=== PATIENT | female | born 1955 | race Hispanic/Latino ===

== ENCOUNTER → 2019-12-25 | Outpatient (CLI) | payer MEDICARE ==
[~2019-12-25] MED LIST: ALEN70TA69 PO; ALEVE PO; ATOR10TA69 PO; CYCL30DR OP; GADODIAMIDE 10 MMOL/20 ML VIAL IV ONE; HYDR25TA PO; LISI-613 PO; MOME17N NS; OXYC-38 PO; PREMC VG; TEMA30CA PO
== END | disposition home or self-care (01) ==
LOC: RAH 08:41
PROVIDERS: ATTEND Family Medicine
DX: M51.27 Other intervertebral disc displacement, lumbosacral region (principal)
CPT/HCPCS: 72158; A9579

== ENCOUNTER → 2020-04-16 | Outpatient (CLI) | payer MEDICARE ==
[~2020-04-16] MED LIST changes: -ALEN70TA69 PO; +ALEN70TA80 PO; -GADODIAMIDE 10 MMOL/20 ML VIAL IV ONE; -LISI-613 PO; +LISI20TA24 PO
== END | disposition home or self-care (01) ==
LOC: RAH 16:34
PROVIDERS: ATTEND Otolaryngology Plastic Surgery within the Head & Neck
DX: J01.00 Acute maxillary sinusitis, unspecified (principal); J32.8 Other chronic sinusitis
CPT/HCPCS: 70486

== ENCOUNTER → 2020-05-05 | Outpatient (CLI) | payer MEDICARE | END | disposition home or self-care (01) | LOC: RAH 07:07 | PROVIDERS: ATTEND Physical Medicine & Rehabilitation | DX: M48.02 Spinal stenosis, cervical region (principal) | CPT/HCPCS: 72141 ==

== ENCOUNTER → 2020-06-04 | Outpatient (CLI) | payer MEDICARE | END | disposition home or self-care (01) | LOC: RAH 10:22 | PROVIDERS: ATTEND Physical Medicine & Rehabilitation | DX: R27.8 Other lack of coordination (principal); R26.89 Other abnormalities of gait and mobility | CPT/HCPCS: 70551 ==

== ENCOUNTER → 2020-09-02 | Outpatient (CLI) | payer MEDICARE | END | disposition home or self-care (01) | LOC: RAH 10:59 | PROVIDERS: ATTEND Otolaryngology Plastic Surgery within the Head & Neck | DX: K21.9 Gastro-esophageal reflux disease without esophagitis (principal); R13.10 Dysphagia, unspecified | CPT/HCPCS: 74230; 92611 ==

== ENCOUNTER → 2021-06-11 | Outpatient (CLI) | payer MEDICARE ==
[~2021-06-11] MED LIST changes: -MOME17N NS; +MOME17SP4 NS
== END ==
LOC: RAH 09:13
PROVIDERS: ATTEND Physical Medicine & Rehabilitation
DX: M47.816 Spondylosis without myelopathy or radiculopathy, lumbar region (principal); M54.50 Low back pain, unspecified
CPT/HCPCS: 72114

== ENCOUNTER → 2021-09-22 | Outpatient (CLI) | payer MEDICARE | END | disposition home or self-care (01) | LOC: RAH 12:41 | PROVIDERS: ATTEND Physical Medicine & Rehabilitation | DX: M47.26 Other spondylosis with radiculopathy, lumbar region (principal); M54.51 Vertebrogenic low back pain; M99.05 Segmental and somatic dysfunction of pelvic region; M46.1 Sacroiliitis, not elsewhere classified | CPT/HCPCS: 72148 ==

== ENCOUNTER 2023-01-18 06:31 | Day surgery (SDC) | payer MEDICARE, OTHER ==
[2023-01-16 13:57] LABS: BASOPHILS # (AUTO) 0.04 K/uL (0.00-0.20); BASOPHILS % (AUTO) 0.6 % (0.0-5.0); EOSINOPHILS # (AUTO) 0.14 K/uL (0.00-0.70); EOSINOPHILS % (AUTO) 2.2 % (0.0-8.0); HEMATOCRIT 37.7 % (36-48); IMMATURE GRANULOCYTE ABSOLUTE 0.01 K/uL (0-1); LYMPHOCYTES # (AUTO) 2.6 K/uL (1.0-4.8); LYMPHOCYTES % (AUTO) 40.8 % (21.0-51.0); MEAN CORPUSCULAR HEMOGLOBIN 29.7 pg (27.0-33.0); MEAN CORPUSCULAR HGB CONC 32.1 g/dL (32.0-36.0); MEAN CORPUSCULAR VOLUME 92.6 fL (79-99); MONOCYTES # (AUTO) 0.5 K/uL (0.1-1.0); MONOCYTES % (AUTO) 7.5 % (3.0-13.0); NEUTROPHILS # (AUTO) 3.1 K/uL (1.8-7.7); NEUTROPHILS % (AUTO) 48.7 % (40.0-77.0); PLATELET COUNT (AUTO) 275 K/uL (130-400); RED BLOOD CELL COUNT(AUTO) 4.07 MIL/uL (4.00-5.50); RED CELL DISTRIBUTION WIDTH 13.4 % (11.0-15.5); WHITE BLOOD COUNT (AUTO) 6.3 K/uL (4.8-10.8)
[2023-01-16 14:10] LABS: INR < 0.93 (0.85-1.15); PROTHROMBIN TIME 10.7 SEC (9.6-11.6)
[2023-01-16 14:11] LABS: PARTIAL THROMBOPLASTIN TIME 27.7 SEC (26.3-35.5)
[2023-01-16 14:17] VITALS: BP 149/80; PULSE 70; RESP 18
[2023-01-16 14:29] LABS: BILIRUBIN,TOTAL 0.7 mg/dL (0.2-1.0); CREATININE 1.3 mg/dL (0.5-1.5); POTASSIUM 4.6 mmol/L (3.5-5.1)
[2023-01-18] VITALS (17 sets, daily range): BP systolic 110–134; BP diastolic 64–70; PULSE 71–84; RESP 14–18
[~2023-01-18] VITALS: Ht 162.6 cm; Wt 73.8 kg
[~2023-01-18 06:31] MED LIST changes: -ALEVE PO; +AMLO-258 PO; +BISA-151 PO; +CARB-38 PO; +CETI10TA57 PO; +DOCU240C25 PO; +FLUT15.845 IH; +FURO20TA4 PO; -LISI20TA24 PO; +LISI40TA9 PO; -MOME17SP4 NS; +NALO25TA4 PO; -OXYC-38 PO; +PERCT10 PO; -PREMC VG; +SULF1TAB42 PO; +TIZA2CAP9 PO; +albuterol IH
[2023-01-18] MEDS ORDERED: CEFAZOLIN SODIUM 2 GM VIAL ONE (07:08)
[2023-01-18] MEDS ORDERED: 0.9%NACL 1000ML 1,000 ML IV ONE (07:08)
[2023-01-18 07:59] LABS: SARS-CoV-2, RNA, NAAT NEGATIVE SARS CoV-2 (NEGATIVE)
[2023-01-18] MEDS ORDERED: BUPIVACAINE/PF 0.5% 30ML VIAL ONE (08:16)
[2023-01-18] MEDS ORDERED: CEFAZOLIN SODIUM 1 GM VIAL ONE ×3 (08:27→09:42)
[2023-01-18] MEDS ORDERED: GENTAMICIN SULFATE 80 MG/2 ML VIAL ONE ×3 (08:27→09:42)
[2023-01-18] MEDS ORDERED: DEXAMETHASONE SOD PHOSPHATE 10MG/ML 1ML VIAL ONE (09:00)
[2023-01-18] MEDS ORDERED: LIDOCAINE PF 100MG/5ML (2%) SYRINGE 5ML ONE (09:00)
[2023-01-18] MEDS ORDERED: SUCCINYLCHOLINE 200MG/10ML SYR ONE (09:00)
[2023-01-18] MEDS ORDERED: MIDAZOLAM HCL 1 MG/ML 2ML VIAL ONE (09:01)
[2023-01-18] MEDS ORDERED: GLYCOPYRROLATE 1 MG/5 ML SYRINGE ONE (09:01)
[2023-01-18] MEDS ORDERED: NEOSTIGMINE 5MG/5ML SYR IV ONE (09:02)
[2023-01-18] MEDS ORDERED: ROCURONIUM 10MG/1ML SYR 10 MG/ML ML ONE (09:02)
[2023-01-18] MEDS ORDERED: ONDANSETRON 4MG INJ ONE (09:02)
[2023-01-18] MEDS ORDERED: PROPOFOL 10 MG/ML 20ML VIAL IV ONE (09:02)
[2023-01-18] MEDS ORDERED: FENTANYL CITRATE PF 50 MCG/1 ML 2ML VIAL ONE (09:02)
[2023-01-18] MEDS ORDERED: POLYMYXIN B SULFATE IRRIG SCH (09:30)
[2023-01-18] MEDS ORDERED: MEPERIDINE-PF 25 MG/ML SYG ONE (11:06)
[2023-01-18] MEDS ORDERED: BACITRACIN 1 EACH PACKET TP ONE (12:14)
== END 2023-01-18 12:30 | disposition home or self-care (01) ==
LOC: DAH 06:31
PROVIDERS: ATTEND Plastic Surgery
DX: N64.89 Other specified disorders of breast (principal); S21.001A Unspecified open wound of right breast, initial encounter; I10 Essential (primary) hypertension; K59.09 Other constipation; L92.8 Other granulomatous disorders of the skin and subcutaneous tissue; Z90.13 Acquired absence of bilateral breasts and nipples; Z85.3 Personal history of malignant neoplasm of breast; X58.XXXA Exposure to other specified factors, initial encounter; Y93.89 Activity, other specified; Y92.89 Other specified places as the place of occurrence of the external cause; Z82.3 Family history of stroke; Z80.3 Family history of malignant neoplasm of breast; Z83.3 Family history of diabetes mellitus; Z82.49 Family history of ischemic heart disease and other diseases of the circulatory system; Z79.899 Other long term (current) drug therapy; Z90.710 Acquired absence of both cervix and uterus; Z98.890 Other specified postprocedural states
CPT/HCPCS: 80053; 85025; 85610; 85730; 36415; 93005; 11971; 11301; 11302; 11981; 87070; 87076; 87077; 87186; 87205; 87116; 87206; 88304; 87635; A6260; A4663; J7030 ×2; A4606; A4649 ×5; J3010; J0690 ×4; J0330; J3490 ×2; J1100; J2710; J2001; J1580 ×3; J2250; J2704; J2405; J2175; A6219; C1713; A4215; A4223; A4222; A4221; A6450; A4600; J0665

== ENCOUNTER → 2024-03-27 | Outpatient (CLI) | payer OTHER ==
[2024-03-27 12:14] LABS: ALBUMIN 3.5 g/dL (3.5-5.0); ASPARTATE AMINOTRANSFERASE 19 U/L (10-37); BILIRUBIN,TOTAL 0.8 mg/dL (0.2-1.0); CARBON DIOXIDE 31 mmol/L (21-32); CHLORIDE 105 mmol/L (101-111); CHOLESTEROL 168 mg/dL (<200); CREATININE 0.9 mg/dL (0.5-1.0); GLOMERULAR FILTR. RATE CALC 69 mL/min (>90); GLUCOSE,RANDOM 104 mg/dL (70-105); HDL CHOLESTEROL 65 mg/dL (35-85); LDL DIRECT 93 mg/dL (0-99); POTASSIUM 4.3 mmol/L (3.5-5.1); SODIUM SERUM 140 mmol/L (136-145); TOTAL PROTEIN, SERUM 6.9 g/dL (6.0-8.3); TRIGLYCERIDES 77 mg/dL (30-200); UREA NITROGEN, BLOOD 19 mg/dL (7-18)
[2024-03-27 12:49] LABS: ALANINE AMINOTRANSFERASE < 6 U/L (12-78)
[2024-03-27 12:56] LABS: HEMOGLOBIN A1C 5.5 % (4.0-6.0)
== END | disposition home or self-care (01) ==
LOC: LAB 09:41
PROVIDERS: ATTEND Student in an Organized Health Care Education/Training Program
DX: I25.10 Atherosclerotic heart disease of native coronary artery without angina pectoris (principal); E78.5 Hyperlipidemia, unspecified; Z79.899 Other long term (current) drug therapy
CPT/HCPCS: 36415; 80053; 80061; 83036

== ENCOUNTER → 2024-05-06 | Outpatient (CLI) | payer OTHER | END | disposition home or self-care (01) | LOC: SHCH 12:50 | PROVIDERS: ATTEND Student in an Organized Health Care Education/Training Program | DX: I08.0 Rheumatic disorders of both mitral and aortic valves (principal); R07.9 Chest pain, unspecified | CPT/HCPCS: 93306 ==

== ENCOUNTER → 2024-05-09 | Outpatient (CLI) | payer OTHER ==
[~2024-05-09] MED LIST changes: +IOHEXOL 350 MG/ML 100ML INFUS..BTL IV ONE; +metoPROLOL tartRATE 1 MG/ML 5ML VIAL IV ONE
--- NOTE | 2024-05-09 14:21 | HMCIMG ---
CT CARDIAC ANGIO W/CONT. CCTA HISTORY: Chest pain COMPARISON: None TECHNIQUE: Multiple sequential axial images of the chest were obtained along with the CT angiogram of the chest study. Patient was given 100 cc of Omnipaque through intravenous route. FINDINGS: There is no evidence of pulmonary nodule or parenchymal disease. No pleural effusion or pericardial effusion is seen. There is no evidence of pneumothorax. There are normal size mediastinal and hilar lymph nodes. The heart is not enlarged. Degenerative changes of the thoracolumbar spine are present. IMPRESSION: 1. No evidence of pulmonary nodule or effusion is seen. Please see CT angiogram report of coronary arteries.
== END | disposition home or self-care (01) ==
LOC: RAH 04-11 13:57
PROVIDERS: ATTEND Student in an Organized Health Care Education/Training Program
DX: R07.9 Chest pain, unspecified (principal); M47.815 Spondylosis without myelopathy or radiculopathy, thoracolumbar region
CPT/HCPCS: 75574; J3490; Q9967